=== PATIENT | male | born 1955 | race Two or more races ===

== ENCOUNTER 2022-10-28 04:15 | Day surgery (SDC) | payer OTHER ==
[2022-10-25 17:45] VITALS: BMI 24.5
[2022-10-28] MEDS ORDERED: DEXAMETHASONE SOD PHOSPHATE 4 MG/1 ML VIAL ONE (10:26)
[2022-10-28] MEDS ORDERED: PROPOFOL 20 ML ONE (10:26)
[2022-10-28] MEDS ORDERED: MIDAZOLAM HCL 2 MG/2 ML SINGLE DOSE VIAL ONE (10:26)
[2022-10-28] MEDS ORDERED: LIDOCAINE HCL/PF 2% SDV 5ML VIAL ONE (10:26)
[2022-10-28] MEDS ORDERED: ONDANSETRON 4 MG/2 ML VIAL ONE (10:26)
[2022-10-28] MEDS ORDERED: BACITRACIN 15 GM TUBE TOPICAL OINTMENT ONE (10:46)
[2022-10-28] MEDS ORDERED: oxyCODONE HCL 5 MG TABLET PO PRN (10:49)
[2022-10-28] MEDS ORDERED: ONDANSETRON 4 MG/2 ML VIAL IVPUSH PRN (10:49)
[2022-10-28] MEDS ORDERED: LACTATED RINGERS SOLUTION 1,000 ML IV SCH (11:00)
[2022-10-28] MEDS ORDERED: ceFAZolin SODIUM 1 GM VIAL ONE (11:16)
[2022-10-28] MEDS ORDERED: ceFAZolin SODIUM 1 GM VIAL IVPB ONE (11:18)
[2022-10-28 15:16] VITALS: RESP 18
[2022-10-28 16:10] VITALS: BP 151/79; PULSE 96; TEMP 97
== END 2022-10-28 16:30 | disposition home or self-care (01) ==
LOC: JASU-SURG 04:15
PROVIDERS: ATTEND Urology
PROC: 0V503ZZ Destruction of Prostate, Percutaneous Approach (ICD-10-PCS; principal; 2022-10-28 11:00)
DX: C61 Malignant neoplasm of prostate (principal)
CPT/HCPCS: 55873; C2618; 94760; C1769